=== PATIENT | male | born 1950 | race Caucasian/White ===

== ENCOUNTER 2020-04-14 11:08 | Inpatient (IN) | payer MEDICARE, OTHER ==
[~2020-04-14] VITALS: Ht 193 cm; Wt 127.3 kg
[2020-04-14] MEDS ORDERED: cefTRIAXone 1GM/50ML D5W 50 ML IV ONE (13:45)
[2020-04-14 13:56] LABS: Basophils # (auto) 0 10 ^3/uL (0-0.2); Basophils % (auto) 0.4 % (0.0-2.0); Eosinophils # (auto) 0 10 ^3/uL (0-0.8); Eosinophils % (auto) 0.5 % (0.0-7.0); Hematocrit 48.3 % (41.0-53.0); Hemoglobin 15.7 g/dL (13.5-17.5); Lymphocytes % (auto) 12.8 % (10.0-50.0); Mean Corpuscular Hemoglobin 31.3 pg (28.0-32.0); Mean Corpuscular Hgb Conc. 32.6 g/dL (32.0-36.0); Mean Corpuscular Volume 95.9 fL (80.0-100.0); Monocytes # (auto) 0.6 10 ^3/uL (0-1.3); Monocytes % (auto) 8.6 % (0.0-12.0); Neutrophils # (auto) 5.9 10 ^3/uL (1.6-8.6); Neutrophils % (auto) 77.7 % (37.0-80.0); Platelet Count (auto) 171 10^3/uL (140-450); Red Blood Cells 5.03 10^6/uL (4.5-5.90); Red Cell Distribution Width 13.8 % (11.8-14.3); White Blood Cell 7.6 10^3/uL (4.4-10.8)
[2020-04-14 14:11] LABS: Albumin 3.3 g/dL (3.4-5.0); Calcium 8.7 mg/dL (8.5-10.1); Magnesium 2.3 mg/dL (1.6-2.6); Potassium 4.8 mmol/L (3.5-5.1)
[2020-04-14 14:12] LABS: INR 1.12 (0.9-1.15); Partial Thromboplastin Time 26.6 sec (23.0-31.2)
[2020-04-14 14:16] LABS: Bilirubin, Total 1.2 mg/dL (0.2-1.0); Total Protein 6.1 g/dL (6.4-8.2)
[2020-04-14] MEDS ORDERED: FUROSEMIDE 40 MG/4 ML VIAL IV ONE (15:15)
[2020-04-14] MEDS ORDERED: METOPROLOL TARTRATE 1MG/1ML-5ML VIAL IV ONE (17:30)
[2020-04-14] MEDS ORDERED: NITROGLYCERIN 0.4 MG SL TAB SL PRN (17:30)
[2020-04-14] MEDS ORDERED: ONDANSETRON HCL 4 MG/2 ML VIAL IV PRN (17:30)
[2020-04-14] MEDS ORDERED: HYDROcodone-ACET 5/325MG TAB PO PRN (17:30)
[2020-04-14] MEDS ORDERED: ACETAMINOPHEN 500 MG TAB PO PRN (17:30)
[2020-04-14] MEDS ORDERED: MORPHINE SULF INJ 2 MG/ML SYRINGE 1ML IV PRN ×2 (17:30)
[2020-04-14 20:10] LABS: Urine Bacteria NONE SEEN /hpf (None Seen); Urine Blood Negative /uL (Negative); Urine Hyaline Cast FEW /lpf (0 - 2); Urine Specific Gravity 1.005 (1.001-1.035); Urine WBC <1 /hpf (0 - 3)
[2020-04-14] MEDS: ATORVASTATIN 20 MG TAB PO SCH (20:10)
[2020-04-14] MEDS: CARVEDILOL 3.125 MG TAB PO SCH (20:11)
[2020-04-14 20:48] LABS: CRP High Sensitivity 0.72 mg/dL (< 0.3)
[2020-04-14 21:15] VITALS: BP 127/80
[2020-04-14] MEDS ORDERED: DOCUSATE SOD 100 MG CAP PO SCH (22:00)
[2020-04-14] MEDS ORDERED: CLINDAMYCIN 300MG IV 50 ML IV ONE (23:05)
[2020-04-14] MEDS: CLINDAMYCIN 300MG IV 50 ML IV SCH (23:09)
[2020-04-15 05:19] VITALS: BP 155/89
[2020-04-15] MEDS ORDERED: FUROSEMIDE 20 MG/2 ML VIAL IV SCH (06:00)
[2020-04-15] MEDS ORDERED: FUROSEMIDE 20 MG/2 ML VIAL ONE (06:16)
[2020-04-15] MEDS ORDERED: CLINDAMYCIN 300MG IV 50 ML IV ONE (06:17)
[2020-04-15] MEDS: CLINDAMYCIN 300MG IV 50 ML IV SCH ×3 (06:22→21:38)
[2020-04-15 08:57] VITALS: BP 122/76
[2020-04-15] MEDS ORDERED: ENOXAPARIN SOD 40 MG/0.4 ML SYRINGE SC SCH (10:00)
[2020-04-15] MEDS ORDERED: ASPirin-EC 81 mg tab PO SCH (10:00)
[2020-04-15] MEDS: cefTRIAXone 1GM/50ML D5W 50 ML IV SCH (10:25)
[2020-04-15] MEDS: DOCUSATE SOD 100 MG CAP PO SCH ×2 (10:25→21:38)
[2020-04-15] MEDS: CARVEDILOL 3.125 MG TAB PO SCH ×2 (10:26→14:23)
[2020-04-15] MEDS: FAMOTIDINE 20 MG TAB PO SCH (10:27)
[2020-04-15] MEDS: LISINOPRIL 10 MG TAB PO SCH (10:27)
[2020-04-15] MEDS ORDERED: MAGNESIUM SULFATE 1GM/100ML 0 ML IV ONE (12:33)
[2020-04-15 13:00] VITALS: BP 128/66
[2020-04-15] MEDS ORDERED: OPTISON 3ml Vial for INJ IV ONE (16:18)
[2020-04-15 16:42] VITALS: BP 130/88
[2020-04-15] MEDS: FUROSEMIDE 40 MG/4 ML VIAL IV SCH (17:59)
[2020-04-15] MEDS ORDERED: CARVEDILOL 3.125 MG TAB PO ONE (21:30)
[2020-04-15] MEDS: APIXABAN 5 MG TAB PO SCH (21:38)
[2020-04-15] MEDS: ATORVASTATIN 20 MG TAB PO SCH (21:38)
[2020-04-15 22:00] VITALS: BP 113/83
[2020-04-16 05:00] VITALS: BP 140/77
[2020-04-16] MEDS: CLINDAMYCIN 300MG IV 50 ML IV SCH ×3 (05:39→21:39)
[2020-04-16] MEDS: FUROSEMIDE 40 MG/4 ML VIAL IV SCH ×2 (05:39→18:35)
[2020-04-16 09:13] VITALS: BP 109/77
[2020-04-16] MEDS: APIXABAN 5 MG TAB PO SCH ×2 (10:00→21:39)
[2020-04-16] MEDS: DOCUSATE SOD 100 MG CAP PO SCH ×2 (10:00→21:41)
[2020-04-16] MEDS: cefTRIAXone 1GM/50ML D5W 50 ML IV SCH (10:42)
[2020-04-16] MEDS: LISINOPRIL 10 MG TAB PO SCH (10:43)
[2020-04-16] MEDS: FAMOTIDINE 20 MG TAB PO SCH (10:43)
[2020-04-16] MEDS: CARVEDILOL 3.125 MG TAB PO SCH ×2 (10:44→21:41)
[2020-04-16 12:47] VITALS: BP 103/70
[2020-04-16 16:49] VITALS: BP 135/72
[2020-04-16] MEDS: ATORVASTATIN 20 MG TAB PO SCH (21:40)
[2020-04-16 21:59] VITALS: BP 125/75
[2020-04-17 05:00] VITALS: BP 123/85
[2020-04-17] MEDS: CLINDAMYCIN 300MG IV 50 ML IV SCH ×3 (05:19→22:11)
[2020-04-17] MEDS: FUROSEMIDE 40 MG/4 ML VIAL IV SCH ×2 (05:19→16:48)
[2020-04-17 08:54] VITALS: BP 124/81
[2020-04-17] MEDS: cefTRIAXone 1GM/50ML D5W 50 ML IV SCH (09:25)
[2020-04-17] MEDS: APIXABAN 5 MG TAB PO SCH ×2 (09:25→22:12)
[2020-04-17] MEDS: FAMOTIDINE 20 MG TAB PO SCH (09:25)
[2020-04-17] MEDS: CARVEDILOL 3.125 MG TAB PO SCH ×2 (09:26→22:11)
[2020-04-17] MEDS: DAPAGLIFLOZIN 5 MG TAB PO SCH (09:27)
[2020-04-17] MEDS: DOCUSATE SOD 100 MG CAP PO SCH ×2 (09:33→22:00)
[2020-04-17 12:44] VITALS: BP 112/68
[2020-04-17 16:48] VITALS: BP 115/70
[2020-04-17 22:00] VITALS: BP 113/67
[2020-04-17] MEDS: ATORVASTATIN 20 MG TAB PO SCH (22:12)
[2020-04-17] MEDS: SACUBITRIL-VALSARTAN 24mg/26mg TAB PO SCH (22:12)
[2020-04-18 05:00] VITALS: BP 136/82
[2020-04-18] MEDS: CLINDAMYCIN 300MG IV 50 ML IV SCH (05:22)
[2020-04-18] MEDS: FUROSEMIDE 40 MG/4 ML VIAL IV SCH (05:23)
[2020-04-18] MEDS: SACUBITRIL-VALSARTAN 24mg/26mg TAB PO SCH (09:44)
[2020-04-18] MEDS: cefTRIAXone 1GM/50ML D5W 50 ML IV SCH (09:44)
[2020-04-18] MEDS: FAMOTIDINE 20 MG TAB PO SCH (09:44)
[2020-04-18] MEDS: DAPAGLIFLOZIN 5 MG TAB PO SCH (09:44)
[2020-04-18] MEDS: APIXABAN 5 MG TAB PO SCH (09:44)
[2020-04-18] MEDS: CARVEDILOL 3.125 MG TAB PO SCH (09:45)
[2020-04-18] MEDS: DOCUSATE SOD 100 MG CAP PO SCH (09:45)
[2020-04-18 10:25] VITALS: BP 119/65
== END 2020-04-18 11:40 | disposition home or self-care (01) | DRG 602 ==
LOC: ER 11:08 → UNDOADMIN 11:09 → TELE 11:09 → TELE-CENTR 11:09 → ER 20:56
PROVIDERS: ADMIT Nurse Practitioner Acute Care; ATTEND Family Medicine
DX: L03.115 Cellulitis of right lower limb (principal); I50.23 Acute on chronic systolic (congestive) heart failure; I13.0 Hypertensive heart and chronic kidney disease with heart failure and stage 1 through stage 4 chronic kidney disease, or unspecified chronic kidney disease; D68.59 Other primary thrombophilia; I42.9 Cardiomyopathy, unspecified; Z91.19 Patient's noncompliance with other medical treatment and regimen; I48.91 Unspecified atrial fibrillation; E66.9 Obesity, unspecified; E78.00 Pure hypercholesterolemia, unspecified; N18.30 Chronic kidney disease, stage 3 unspecified; N45.3 Epididymo-orchitis; Z79.82 Long term (current) use of aspirin; Z79.899 Other long term (current) drug therapy; Z68.34 Body mass index [BMI] 34.0-34.9, adult
CPT/HCPCS: 36415; 71046; 76870; 80053; 80061; 81001; 83735; 83880; 84484; 85025; 85610; 85730; 86141; 87040; 93306; 93971; 96365; 96366; 96375; G0378; J0696; J3490; Q9956

== ENCOUNTER → 2020-08-13 | Outpatient (CLI) | payer MEDICARE, OTHER | END | disposition home or self-care (01) | LOC: XYW 12:52 | PROVIDERS: ATTEND Internal Medicine | DX: I08.3 Combined rheumatic disorders of mitral, aortic and tricuspid valves (principal); I48.91 Unspecified atrial fibrillation; I10 Essential (primary) hypertension | CPT/HCPCS: 93306 ==

== ENCOUNTER 2020-09-24 16:40 | Inpatient (IN) | payer OTHER, MEDICARE ==
[~2020-09-24] VITALS: Ht 193 cm; Wt 124.0 kg
[2020-09-24 17:00] VITALS: BP 112/79
[2020-09-24] MEDS ORDERED: DAPA1TAB4 PO (17:23)
[2020-09-24] MEDS ORDERED: SACU1TAB PO (17:23)
[2020-09-24] MEDS ORDERED: POTA10TA51 PO (17:23)
[2020-09-24] MEDS ORDERED: APIX2.5T PO (17:23)
[2020-09-24] MEDS ORDERED: FURO40TA4 PO (17:23)
[2020-09-24] MEDS ORDERED: NITROGLYCERIN 0.4 MG SL TAB SL PRN (19:30)
[2020-09-24] MEDS ORDERED: ONDANSETRON HCL 4 MG/2 ML VIAL IV PRN (19:30)
[2020-09-24] MEDS ORDERED: LABETALOL HCL 5 MG/ML 4ML SYRINGE IV PRN (19:30)
[2020-09-24] MEDS ORDERED: LORazepam 0.5 MG TAB PO PRN (19:30)
[2020-09-24] MEDS ORDERED: MORPHINE SULFATE INJECTION 2 MG/ML SYRG IV PRN ×2 (19:30)
[2020-09-24] MEDS ORDERED: ALBUTEROL SULF 2.5 MG/0.5ML(0.5%) NEB SOLN NEB PRN (19:30)
[2020-09-24] MEDS ORDERED: DOCUSATE CALCIUM 240 MG CAP PO PRN (19:30)
[2020-09-24 19:39] LABS: Basophils # (auto) 0 10 ^3/uL (0-0.2); Basophils % (auto) 0.4 % (0.0-2.0); Eosinophils # (auto) 0 10 ^3/uL (0-0.8); Eosinophils % (auto) 0.5 % (0.0-7.0); Hematocrit 47.9 % (41.0-53.0); Lymphocytes # (auto) 1.2 10 ^3/uL (0.4-5.4); Mean Corpuscular Hemoglobin 32.7 pg (28.0-32.0); Mean Corpuscular Hgb Conc. 33.3 g/dL (32.0-36.0); Mean Corpuscular Volume 98.2 fL (80.0-100.0); Monocytes # (auto) 0.6 10 ^3/uL (0-1.3); Neutrophils # (auto) 4.1 10 ^3/uL (1.6-8.6); Neutrophils % (auto) 69.1 % (37.0-80.0); Nucleated Red Blood Cells % 0.1 %; Red Blood Cells 4.88 10^6/uL (4.5-5.90); White Blood Cell 5.9 10^3/uL (4.4-10.8)
[2020-09-24 19:59] LABS: Albumin 3.3 g/dL (3.4-5.0); Calcium 8.8 mg/dL (8.5-10.1); Potassium 4.6 mmol/L (3.5-5.1)
[2020-09-24 20:00] VITALS: BP 109/78
[2020-09-24 20:02] LABS: BUN/Creatinine Ratio 22.2; Bilirubin, Total 1.5 mg/dL (0.2-1.0); Total Protein 6.6 g/dL (6.4-8.2)
[2020-09-24 20:09] VITALS: BP 112/79
[2020-09-24] MEDS: DOBUTamine 1000MCG/ML 250 ML IV SCH (21:12)
[2020-09-24] MEDS: ATORVASTATIN 20 MG TAB PO SCH (21:12)
[2020-09-24] MEDS: CARVEDILOL 3.125 MG TAB PO SCH (21:13)
[2020-09-24] MEDS: FUROSEMIDE 40 MG/4 ML VIAL IV SCH (21:13)
[2020-09-24] MEDS: ENOXAPARIN SOD 150 MG/1 ML SYRINGE SC SCH (21:14)
[2020-09-24] MEDS: SACUBITRIL-VALSARTAN 24mg/26mg TAB PO SCH (21:14)
[2020-09-24 22:00] VITALS: BP 109/78
[2020-09-24] MEDS ORDERED: guaiFENesin-DM 100/10mg/5ml SYR PO PRN (22:30)
[2020-09-25 04:51] VITALS: BP 103/71
[2020-09-25] MEDS: FUROSEMIDE 40 MG/4 ML VIAL IV SCH ×2 (05:50→17:38)
[2020-09-25] MEDS: DOBUTamine 1000MCG/ML 250 ML IV SCH ×4 (05:51→21:44)
[2020-09-25 06:45] LABS: Calcium 8.8 mg/dL (8.5-10.1)
[2020-09-25 06:51] LABS: Albumin 3.1 g/dL (3.4-5.0); Bilirubin, Total 1.5 mg/dL (0.2-1.0); Potassium 4.5 mmol/L (3.5-5.1)
[2020-09-25 07:01] LABS: Basophils # (auto) 0 10 ^3/uL (0-0.2); Basophils % (auto) 0.6 % (0.0-2.0); Eosinophils # (auto) 0 10 ^3/uL (0-0.8); Eosinophils % (auto) 0.8 % (0.0-7.0); Hematocrit 44.1 % (41.0-53.0); Hemoglobin 14.6 g/dL (13.5-17.5); Lymphocytes # (auto) 1.2 10 ^3/uL (0.4-5.4); Lymphocytes % (auto) 22.2 % (10.0-50.0); Mean Corpuscular Hemoglobin 32.5 pg (28.0-32.0); Mean Corpuscular Volume 98.3 fL (80.0-100.0); Monocytes # (auto) 0.6 10 ^3/uL (0-1.3); Monocytes % (auto) 11.3 % (0.0-12.0); Neutrophils # (auto) 3.6 10 ^3/uL (1.6-8.6); Neutrophils % (auto) 65.1 % (37.0-80.0); Nucleated Red Blood Cells % 0.2 %; Red Blood Cells 4.48 10^6/uL (4.5-5.90); White Blood Cell 5.5 10^3/uL (4.4-10.8)
[2020-09-25 07:19] LABS: BUN/Creatinine Ratio 21.9
[2020-09-25 09:00] VITALS: BP 115/67
[2020-09-25] MEDS: PANTOPRAZOLE 40 MG TAB PO SCH (09:30)
[2020-09-25] MEDS: DAPAGLIFLOZIN 5 MG TAB PO SCH (09:30)
[2020-09-25] MEDS: CARVEDILOL 3.125 MG TAB PO SCH ×2 (09:30→21:44)
[2020-09-25] MEDS: ENOXAPARIN SOD 150 MG/1 ML SYRINGE SC SCH ×2 (09:31→21:45)
[2020-09-25] MEDS: SACUBITRIL-VALSARTAN 24mg/26mg TAB PO SCH ×2 (09:31→21:45)
[2020-09-25] MEDS ORDERED: ENOXAPARIN SOD 40 MG/0.4 ML SYRINGE SC SCH (10:00)
[2020-09-25] MEDS ORDERED: LABETALOL HCL 5 MG/ML 4ML SYRINGE IV PRN (10:30)
[2020-09-25 12:17] LABS: Urine WBC None Seen /hpf (0 - 3)
[2020-09-25 12:48] LABS: Urine Bacteria NONE SEEN /hpf (None Seen); Urine Blood Negative /uL (Negative); Urine Hyaline Cast FEW /lpf (0 - 2); Urine Specific Gravity 1.007 (1.001-1.035)
[2020-09-25 13:00] VITALS: BP 81/55
[2020-09-25 17:00] VITALS: BP 120/69
[2020-09-25] MEDS: ATORVASTATIN 20 MG TAB PO SCH (21:45)
[2020-09-25 22:00] VITALS: BP 106/80
[2020-09-26 05:00] VITALS: BP 121/70
[2020-09-26 05:33] LABS: BUN/Creatinine Ratio 24.8; Calcium 8.5 mg/dL (8.5-10.1)
[2020-09-26] MEDS: DOBUTamine 1000MCG/ML 250 ML IV SCH ×3 (05:51→15:02)
[2020-09-26] MEDS: FUROSEMIDE 40 MG/4 ML VIAL IV SCH ×2 (05:52→18:17)
[2020-09-26 09:00] VITALS: BP 91/49
[2020-09-26] MEDS: PANTOPRAZOLE 40 MG TAB PO SCH (09:59)
[2020-09-26] MEDS: ENOXAPARIN SOD 150 MG/1 ML SYRINGE SC SCH ×2 (09:59→22:16)
[2020-09-26] MEDS: SACUBITRIL-VALSARTAN 24mg/26mg TAB PO SCH ×2 (10:00→22:16)
[2020-09-26] MEDS: CARVEDILOL 3.125 MG TAB PO SCH ×2 (10:00→22:00)
[2020-09-26] MEDS: DAPAGLIFLOZIN 5 MG TAB PO SCH (10:44)
[2020-09-26] MEDS ORDERED: MAGNESIUM SULFATE 1GM/100ML 100 ML IV ONE (11:30)
[2020-09-26 13:00] VITALS: BP 92/74
[2020-09-26 17:00] VITALS: BP 120/74
[2020-09-26 22:00] VITALS: BP 93/53
[2020-09-26] MEDS: ATORVASTATIN 20 MG TAB PO SCH (22:16)
[2020-09-27 05:18] VITALS: BP 115/88
[2020-09-27] MEDS: DOBUTamine 1000MCG/ML 250 ML IV SCH ×2 (05:34→05:40)
[2020-09-27] MEDS: FUROSEMIDE 40 MG/4 ML VIAL IV SCH ×2 (05:35→16:59)
[2020-09-27 05:44] LABS: Basophils # (auto) 0 10 ^3/uL (0-0.2); Basophils % (auto) 0.3 % (0.0-2.0); Eosinophils # (auto) 0 10 ^3/uL (0-0.8); Eosinophils % (auto) 0.8 % (0.0-7.0); Hematocrit 42.7 % (41.0-53.0); Hemoglobin 14.4 g/dL (13.5-17.5); Lymphocytes % (auto) 19.7 % (10.0-50.0); Mean Corpuscular Hemoglobin 32.7 pg (28.0-32.0); Mean Corpuscular Hgb Conc. 33.7 g/dL (32.0-36.0); Mean Corpuscular Volume 97.1 fL (80.0-100.0); Monocytes # (auto) 0.6 10 ^3/uL (0-1.3); Monocytes % (auto) 11.6 % (0.0-12.0); Neutrophils # (auto) 3.4 10 ^3/uL (1.6-8.6); Neutrophils % (auto) 67.6 % (37.0-80.0); Red Cell Distribution Width 14.4 % (11.8-14.3)
[2020-09-27 06:12] LABS: BUN/Creatinine Ratio 21.6; Calcium 8.6 mg/dL (8.5-10.1); Potassium 3.6 mmol/L (3.5-5.1)
[2020-09-27] MEDS ORDERED: ADENOSINE 108 MG in GIVE UN-DILUTED 0 ML IV STA (08:32)
[2020-09-27 08:39] VITALS: BP 103/67
[2020-09-27 09:06] VITALS: BP 99/74
[2020-09-27] MEDS: SACUBITRIL-VALSARTAN 24mg/26mg TAB PO SCH ×2 (10:24→22:05)
[2020-09-27] MEDS: DAPAGLIFLOZIN 5 MG TAB PO SCH (11:13)
[2020-09-27] MEDS: PANTOPRAZOLE 40 MG TAB PO SCH (11:13)
[2020-09-27] MEDS: CARVEDILOL 3.125 MG TAB PO SCH ×2 (11:13→22:05)
[2020-09-27 12:38] VITALS: BP 99/64
[2020-09-27 16:42] VITALS: BP 96/50
[2020-09-27] MEDS: ATORVASTATIN 20 MG TAB PO SCH (22:05)
[2020-09-27 22:24] VITALS: BP 102/57
[2020-09-28 03:23] VITALS: BP 97/60
[2020-09-28 05:00] VITALS: BP 99/61
[2020-09-28] MEDS: FUROSEMIDE 40 MG/4 ML VIAL IV SCH ×2 (05:59→19:00)
[2020-09-28 06:32] LABS: BUN/Creatinine Ratio 21.5; Calcium 9.3 mg/dL (8.5-10.1); Potassium 3.7 mmol/L (3.5-5.1)
[2020-09-28 08:46] VITALS: BP 103/66
[2020-09-28] MEDS: PANTOPRAZOLE 40 MG TAB PO SCH (09:16)
[2020-09-28] MEDS: SACUBITRIL-VALSARTAN 24mg/26mg TAB PO SCH ×2 (09:16→22:07)
[2020-09-28] MEDS: DAPAGLIFLOZIN 5 MG TAB PO SCH (09:17)
[2020-09-28] MEDS: CARVEDILOL 3.125 MG TAB PO SCH ×2 (09:17→22:07)
[2020-09-28 12:59] VITALS: BP 94/60
[2020-09-28 16:51] VITALS: BP 110/62
[2020-09-28 22:00] VITALS: BP 96/72
[2020-09-28] MEDS: ATORVASTATIN 20 MG TAB PO SCH (22:07)
[2020-09-29 05:00] VITALS: BP 107/77
[2020-09-29] MEDS: FUROSEMIDE 40 MG/4 ML VIAL IV SCH (05:53)
[2020-09-29 06:24] LABS: Basophils # (auto) 0 10 ^3/uL (0-0.2); Basophils % (auto) 0.4 % (0.0-2.0); Eosinophils # (auto) 0.1 10 ^3/uL (0-0.8); Eosinophils % (auto) 1.1 % (0.0-7.0); Hematocrit 46.5 % (41.0-53.0); Hemoglobin 15.6 g/dL (13.5-17.5); Lymphocytes # (auto) 1.1 10 ^3/uL (0.4-5.4); Lymphocytes % (auto) 19.9 % (10.0-50.0); Mean Corpuscular Hemoglobin 32.7 pg (28.0-32.0); Mean Corpuscular Hgb Conc. 33.5 g/dL (32.0-36.0); Mean Corpuscular Volume 97.5 fL (80.0-100.0); Monocytes # (auto) 0.8 10 ^3/uL (0-1.3); Monocytes % (auto) 14.8 % (0.0-12.0); Neutrophils # (auto) 3.5 10 ^3/uL (1.6-8.6); Neutrophils % (auto) 63.8 % (37.0-80.0); Nucleated Red Blood Cells % 0.2 %; Red Blood Cells 4.77 10^6/uL (4.5-5.90); Red Cell Distribution Width 14.5 % (11.8-14.3); White Blood Cell 5.5 10^3/uL (4.4-10.8)
[2020-09-29 06:39] LABS: INR 1.08 (0.9-1.15); Partial Thromboplastin Time 29.6 sec (23.0-31.2)
[2020-09-29 06:40] LABS: Calcium 8.9 mg/dL (8.5-10.1); Potassium 3.8 mmol/L (3.5-5.1)
[2020-09-29 08:00] VITALS: BP 96/64
[2020-09-29] MEDS: PANTOPRAZOLE 40 MG TAB PO SCH (10:05)
[2020-09-29] MEDS: SACUBITRIL-VALSARTAN 24mg/26mg TAB PO SCH (10:05)
[2020-09-29] MEDS: CARVEDILOL 3.125 MG TAB PO SCH (10:05)
[2020-09-29] MEDS: DAPAGLIFLOZIN 5 MG TAB PO SCH (10:05)
[2020-09-29 12:00] VITALS: BP 93/65
[2020-09-29 13:17] VITALS: BP 93/65
== END 2020-09-29 16:15 | disposition home or self-care (01) | DRG 291 ==
LOC: TELE-CENTR 16:40
PROVIDERS: ADMIT Internal Medicine; ATTEND Internal Medicine
DX: I13.0 Hypertensive heart and chronic kidney disease with heart failure and stage 1 through stage 4 chronic kidney disease, or unspecified chronic kidney disease (principal); I50.23 Acute on chronic systolic (congestive) heart failure; I48.20 Chronic atrial fibrillation, unspecified; D68.69 Other thrombophilia; E66.9 Obesity, unspecified; I42.9 Cardiomyopathy, unspecified; I25.10 Atherosclerotic heart disease of native coronary artery without angina pectoris; N18.30 Chronic kidney disease, stage 3 unspecified; Z20.822 Contact with and (suspected) exposure to COVID-19; D69.6 Thrombocytopenia, unspecified; Z53.20 Procedure and treatment not carried out because of patient's decision for unspecified reasons; Z79.01 Long term (current) use of anticoagulants; Z79.899 Other long term (current) drug therapy; Z91.14 Patient's other noncompliance with medication regimen
CPT/HCPCS: 36415; 71045; 78452; 80048; 80053; 81001; 83880; 84443; 85025; 85379; 85610; 85730; 93005; 93017; 93970; G0378; J0153

== ENCOUNTER → 2021-10-20 | Outpatient (CLI) | payer OTHER, MEDICARE ==
[~2021-10-20] MED LIST: APIX2.5T PO; DAPA1TAB4 PO; FURO40TA4 PO; POTA10TA51 PO; SACU1TAB PO
== END | disposition home or self-care (01) ==
LOC: XYW 12:41
PROVIDERS: ATTEND Internal Medicine
DX: I08.3 Combined rheumatic disorders of mitral, aortic and tricuspid valves (principal); I50.23 Acute on chronic systolic (congestive) heart failure
CPT/HCPCS: 93306